=== PATIENT | female | born 1985 | race Caucasian/White ===

== ENCOUNTER 2019-04-27 15:47 | Emergency (ER) | payer BC, OTHER ==
[2019-04-27 16:05] VITALS: PULSE 75; TEMP 98.7; BMI 27.4
--- NOTE | 2019-04-27 16:37 | PDOC ---
History of Present Illness - General Chief Complaint: Vaginal Bleeding Stated Complaint: SENT BY PCP/ 5 WKS/ BLEEDING Time Seen by Provider: 04/27/19 16:31 History Source: Patient Exam Limitations: Clinical Condition - History of Present Illness Initial Comments: 04/27/19 16:35 Patient with no significant past medical history LMP 03/26presented with complaint of vaginal spotting soaking 1 pad a day and home test positive. Patient reported nausea but denies vomiting. Denies abdominal pain, constipation, diarrhea. Patient reported unable to secure from her CLINICAL LAB SPECIALIST so she came in to make sure she is okay. Denies any other symptoms Is this a multiple visit Asthma Patient?: No Timing/Duration: 24 hours Past History - Past Medical History Allergies/Adverse Reactions: Allergies Allergy/AdvReac Type Severity Reaction Status Date / Time Sulfa (Sulfonamide Allergy Verified 04/27/19 16:04 Antibiotics) Home Medications: Ambulatory Orders Nitrofurantoin Monohyd/M-Cryst [Macrobid -] 100 mg PO BID #14 capsule 04/27/19 Asthma: Yes COPD: No Other medical history: polyps on thyroid - Psycho Social/Smoking Cessation Hx Smoking History: Never smoked Hx Alcohol Use: Yes Drug/Substance Use Hx: No Review of Systems - Review of Systems Able to Perform ROS?: Yes Is the patient limited Dominican proficient: No Constitutional: No: Chills, Fever, Malaise HEENTM: No: Symptoms Reported, See HPI, Eye Pain, Blurred Vision, Tearing, Recent change in vision, Double Vision, Cataracts, Ear Pain, Ocular Prothesis, Ear Discharge, Nose Pain, Nose Congestion, Tinnitus, Nose Bleeding, Hearing Loss , Throat Pain, Throat Swelling, Mouth Pain, Dental Problems, Difficulty Swallowing, Mouth Swelling, Other Respiratory: No: Symptoms reported, See HPI, Cough, Orthopnea, Shortness of Breath, SOB with Exertion, SOB at Rest, Stridor, Wheezing, Productive cough, Hemoptysis, Other Cardiac (ROS): No: Symptoms Reported, See HPI, Chest Pain, Edema, Irregular Heart Rate, Lightheadedness, Palpitations, Syncope, Chest Tightness, Other ABD/GI: Yes: Symptoms Reported, See HPI, Nausea. No: Abdominal Distended, Abd. Pain w/ defecation, Constipated, Diarrhea, Difficulty Swallowing, Rectal Bleeding, Vomiting, Abdominal cramping : Yes: Symptoms Reported, See HPI, Other (vaginal spotting). No: Burning, Dysuria, Discharge, Frequency, Flank Pain, Hematuria, Urgency Musculoskeletal: No: Symptoms Reported Integumentary: No: Symptoms Reported Neurological: No: Symptoms reported All Other Systems: Reviewed and Negative *Physical Exam - Vital Signs Last Vital Signs Temp Pulse Resp BP Pulse Ox 98.7 F 75 16 129/76 97 04/27/19 16:01 04/27/19 16:01 04/27/19 16:01 04/27/19 16:01 04/27/19 16:01 - Physical Exam General Appearance: Yes: Nourished, Appropriately Dressed. No: Apparent Distress HEENT: positive: Normal ENT Inspection, Pharynx Normal, Thrush Respiratory/Chest: positive: Lungs Clear, Normal Breath Sounds. negative: Respiratory Distress, Accessory Muscle Use Cardiovascular: positive: Regular Rhythm, Regular Rate Female Pelvic Exam: positive: normal external exam, cervical os closed, normal adnexa, vaginal bleeding (small amount of dark blood in vaginal vault. no active bleeding). negative: CMT Gastrointestinal/Abdominal: positive: Normal Bowel Sounds, Flat, Soft. negative : Tender, Organomegaly Musculoskeletal: positive: Normal Inspection Extremity: positive: Normal Inspection Integumentary: positive: Normal Color Neurologic: positive: Fully Oriented, Alert, Normal Mood/Affect, Normal Response ED Treatment Course - LABORATORY CBC & Chemistry Diagram: 04/27/19 14:43 04/27/19 14:43 Medical Decision Making - Medical Decision Making 04/27/19 16:36 Patient with no significant past medical history LMP 03/26 presented with complaint of vaginal spotting soaking 1 pad a day and home test positive. Patient reported nausea but denies vomiting. Denies abdominal pain, constipation, diarrhea. Patient reported unable to secure from her CLINICAL LAB SPECIALIST so she came in to make sure she is okay. Denies any other symptoms 04/27/19 16:51 Exam significant for small amount of dark blood in vaginal vault with no acute vaginal bleeding. Cervical os closed. No cervical motion tenderness. Patient symptoms likely threatened versus menstrual. CBC, CMP and beta-hCG lab ordered. UA and urine culture lab ordered. Transvaginal ultrasound to be ordered based on test result 04/27/19 17:18 Patient signed out to [email or web address] for follow-up care Discharge - Discharge Information Problems reviewed: Yes Clinical Impression/Diagnosis: Vaginal bleeding Condition: Stable Disposition: HOME - Additional Discharge Information Prescriptions: Nitrofurantoin Monohyd/M-Cryst [Macrobid -] 100 mg PO BID #14 capsule - Follow up/Referral Referrals: Adam Rios MD [Primary Care Provider] - - Patient Discharge Instructions Additional Instructions: Rest, drink lots of fluids: Teas, water, soups Avoid contact with others until fevers and symptoms resolved Lots of handwashing and good hygiene Continue [id number] medications for symptomatic relief Tylenol or Motrin for fever and pain Continue all of antibiotics until completed Followup with private physician in one week for repeat urinalysis/reevaluation Return to emergency department for worsened symptoms, fevers, dehydration - Post Discharge Activity
[2019-04-27 17:09] LABS: EOS % 1.7 % (0-4.5); HEMATOCRIT 40.9 % (32.4-45.2); HEMOGLOBIN 13.7 GM/dL (10.7-15.3); LYMPH % 40.9 % (8-40); MCH 29.8 pg (25.7-33.7); MCHC 33.4 g/dl (32.0-36.0); MEAN CELL VOLUME 89.2 fl (80-96); MEAN PLT VOLUME 9.1 fl (7.5-11.1); MONO % 6.8 % (3.8-10.2); NEUT % 49.6 % (42.8-82.8); PLATELET COUNT 293 K/MM3 (134-434); RBC 4.59 M/mm3 (3.60-5.2); RDW 12.3 % (11.6-15.6); WHITE BLOOD COUNT 8.7 K/mm3 (4.0-10.0)
[2019-04-27 17:18] LABS: EPI CELLS 0.6 /HPF (0-5/HPF); HYALINE CASTS 0 /lpf (0-8); URINE APPEARANCE CLEAR; URINE BACTERIA 6060.6 /hpf (NEGATIVE); URINE BILIRUBIN NEGATIVE (NEGATIVE); URINE COLOR YELLOW; URINE GLUCOSE (UA) NEGATIVE (NEGATIVE); URINE KETONE NEGATIVE (NEGATIVE); URINE LEUK ESTERASE NEGATIVE (NEGATIVE); URINE NITRITE POSITIVE (NEGATIVE); URINE PROTEIN NEGATIVE (NEGATIVE); URINE RBC 1 /hpf (0-4); URINE UROBILINOGEN 0.2 mg/dL (0.2-1.0); URINE WBC 1 /hpf (0-5)
[2019-04-27 17:43] LABS: ALBUMIN 4.2 g/dl (3.4-5.0); BILIRUBIN,TOTAL 0.2 mg/dL (0.2-1); BLOOD UREA NITROGEN 12.2 mg/dL (7-18); CALCIUM 9.3 mg/dL (8.5-10.1); CREATININE 0.8 mg/dL (0.55-1.3); TOT PROT 7.6 g/dl (6.4-8.2)
--- NOTE | 2019-04-27 17:58 | PDOC ---
*Physical Exam - Vital Signs Last Vital Signs Temp Pulse Resp BP Pulse Ox 98.7 F 75 16 129/76 97 04/27/19 16:01 04/27/19 16:01 04/27/19 16:01 04/27/19 16:01 04/27/19 16:01 - Physical Exam General Appearance: Yes: Appropriately Dressed. No: Apparent Distress Respiratory/Chest: positive: Lungs Clear, Normal Breath Sounds. negative: Respiratory Distress, Accessory Muscle Use Cardiovascular: positive: Regular Rhythm, Regular Rate. negative: Murmur Gastrointestinal/Abdominal: positive: Normal Bowel Sounds, Soft. negative: Tender ED Treatment Course - LABORATORY CBC & Chemistry Diagram: 04/27/19 14:43 04/27/19 14:43 - ADDITIONAL ORDERS Additional order review: Laboratory Results 04/27/19 04/27/19 14:43 14:43 Sodium 139 Potassium 4.0 Chloride 106 Carbon Dioxide 26 Anion Gap 7 L BUN 12.2 Creatinine 0.8 Est GFR (CKD-EPI)AfAm 113.86 Est GFR (CKD-EPI)NonAf 98.24 Random Glucose 77 Calcium 9.3 Total Bilirubin 0.2 AST 14 L ALT 24 Alkaline Phosphatase 77 Total Protein 7.6 Albumin 4.2 Beta HCG, Quant 4.4 Urine Color Yellow Urine Appearance Clear Urine pH 8.0 Ur Specific [place] 1.010 Urine Protein Negative Urine Glucose (UA) Negative Urine Ketones Negative Urine Blood 2+ H Urine Nitrite Positive H Urine Bilirubin Negative Urine Urobilinogen 0.2 Ur Leukocyte Esterase Negative Urine WBC (Auto) 1 Urine RBC (Auto) 1 Urine Casts (Auto) 0 U Epithel Cells (Auto) 0.6 Urine Bacteria (Auto) 6060.6 04/27/19 14:43 RBC 4.59 MCV 89.2 MCHC 33.4 RDW 12.3 MPV 9.1 Neutrophils % 49.6 Lymphocytes % 40.9 H Monocytes % 6.8 Eosinophils % 1.7 Basophils % 1.0 ED Progress Note - Progress Note Progress Note: 04/27/19 17:54 Received patient from [facility]. 33-year-old woman presents emergency department for evaluation of positive home test and vaginal spotting today. Patient reports her last menstrual period was 03/27. Patient was unable to obtain an evaluation by her [employer]BI[employer] TECHNICIAN and came to the emergency department for evaluation Laboratory testing is pending Disposition pending laboratory studies Medical Decision Making - Medical Decision Making 04/27/19 17:55 Laboratory Tests 04/27/19 04/27/19 04/27/19 14:43 14:43 14:43 WBC 8.7 Hgb 13.7 Hct 40.9 Plt Count 293 Sodium 139 Potassium 4.0 Chloride 106 Carbon Dioxide 26 BUN 12.2 Creatinine 0.8 Est GFR (CKD-EPI)AfAm 113.86 Est GFR (CKD-EPI)NonAf 98.24 Random Glucose 77 Calcium 9.3 Total Bilirubin 0.2 AST 14 L ALT 24 Alkaline Phosphatase 77 Total Protein 7.6 Albumin 4.2 Beta HCG, Quant 4.4 Urine Color Yellow Urine Appearance Clear Urine pH 8.0 Ur Specific [place] 1.010 Urine Protein Negative Urine Glucose (UA) Negative Urine Ketones Negative Urine Blood 2+ H Urine Nitrite Positive H Urine Bilirubin Negative Urine Urobilinogen 0.2 Ur Leukocyte Esterase Negative Urine WBC (Auto) 1 Urine RBC (Auto) 1 Urine Casts (Auto) 0 U Epithel Cells (Auto) 0.6 Urine Bacteria (Auto) 6060.6 As beta-hCG is 4.4 patient is likely not and this is likely a normal menstrual period. Urinalysis notable for positive nitrates and 6000 bacteria. Patient is allergic to sulfa I will discharge the patient with prescription for Macrobid 100 mg twice daily for the next 7 days. I discussed the physical exam findings, ancillary test results and final diagnoses with the patient. I answered all of the patient's questions. The patient was satisfied with the care received and felt comfortable with the discharge plan and treatment plan. The patient will call their primary care physician within 24 hours to arrange follow-up and will return to the Emergency Department with any new, persistent or worsening symptoms. 04/27/19 17:58 Discharge - Discharge Information Problems reviewed: Yes Clinical Impression/Diagnosis: Vaginal bleeding, Cystitis Condition: Stable Disposition: HOME - Admission No - Additional Discharge Information Prescriptions: Nitrofurantoin Monohyd/M-Cryst [Macrobid -] 100 mg PO BID #14 capsule - Follow up/Referral Referrals: Adam Rios MD [Primary Care Provider] - - Patient Discharge Instructions Additional Instructions: Rest, drink lots of fluids: Teas, water, soups Avoid contact with others until fevers and symptoms resolved Lots of handwashing and good hygiene Continue [id number] medications for symptomatic relief Tylenol or Motrin for fever and pain Continue all of antibiotics until completed Followup with private physician in one week for repeat urinalysis/reevaluation Return to emergency department for worsened symptoms, fevers, dehydration - Post Discharge Activity
[2019-04-27 18:01] VITALS: BP 116/63
== END 2019-04-27 18:04 | disposition home or self-care (01) ==
LOC: JER 15:47
DX: N30.90 Cystitis, unspecified without hematuria (principal); N93.9 Abnormal uterine and vaginal bleeding, unspecified; Z88.2 Allergy status to sulfonamides
CPT/HCPCS: 36415; 80053; 81003; 84702; 85025; 86850; 86900; 86901; 87086; 87186; 99282-25

== ENCOUNTER 2020-04-03 10:12 | Emergency (ER) | payer BC, OTHER | END 2020-04-03 10:29 | disposition home or self-care (01) | LOC: JVIRT 10:12 | DX: Z11.59 Encounter for screening for other viral diseases (principal) | CPT/HCPCS: C9803; Q3014-GT; U0003 ==

== ENCOUNTER 2023-04-20 07:05 | Inpatient (IN) | payer BC, OTHER ==
[2023-04-20 08:16] VITALS: BMI 35.5
[2023-04-20] MEDS ORDERED: AMPICILLIN - 2 GM in SODIUM CHLORIDE 100 ML IVPB ONE (08:25)
[2023-04-20] MEDS ORDERED: OXYTOCIN 30 UNITS in 0.9% NS 30 UNIT/500 ML INFUS.BAG IVPB SCH (08:30)
[2023-04-20] MEDS: ELECTROLYTE-148 SOLN 1,000 ML IV SCH ×3 (09:05→13:57)
[2023-04-20 09:22] LABS: BASO % 0.9 % (0-2.0); EOS % 1.9 % (0-4.5); HEMATOCRIT 34.7 % (32.4-45.2); HEMOGLOBIN 11.6 GM/dL (10.7-15.3); LYMPH % 20.8 % (8-40); MCH 29.9 pg (25.7-33.7); MCHC 33.5 g/dl (32.0-36.0); MEAN CELL VOLUME 89.1 fl (80-96); MEAN PLT VOLUME 9.7 fl (7.5-11.1); MONO % 6.1 % (3.8-10.2); NEUT % 70.3 % (42.8-82.8); PLATELET COUNT 171 10^3/uL (134-434); RBC 3.89 M/mm3 (3.60-5.2); RDW 14.3 % (11.6-15.6); WHITE BLOOD COUNT 10.2 K/mm3 (4.0-10.0)
[2023-04-20 09:26] LABS: INR 0.96 (0.83-1.09); PROTHROMBIN TIME (PATIENT) 11.1 SEC (9.7-13.0)
[2023-04-20 09:29] LABS: ACTIVATED PTT 25.9 SECONDS (25.2-36.5)
[2023-04-20] MEDS ORDERED: OXYTOCIN 30 UNITS in 0.9% NS 30 UNIT/500 ML INFUS.BAG IVPB ONE (09:29)
[2023-04-20 09:38] LABS: POTASSIUM 4.1 mmol/L (3.5-5.1)
[2023-04-20 09:40] LABS: BLOOD UREA NITROGEN 11.8 mg/dL (7-18)
[2023-04-20 09:43] LABS: CREATININE 0.6 mg/dL (0.55-1.3)
[2023-04-20] MEDS ORDERED: FENTANYL/BUPIVACAINE/NS/PF - PCEA - 50 ML DISP.SYRIN EP ONE (11:45)
[2023-04-20] MEDS ORDERED: LIDOCAINE HCL/EPINEPHRINE/PF 10 ML VIAL ONE (11:53)
[2023-04-20] MEDS ORDERED: FENTANYL CITRATE/PF 50 MCG/ML VIAL ONE (11:53)
[2023-04-20] MEDS ORDERED: BUPIVACAINE HCL/PF 0.25% (2.5MG/ML) 10 ML VIAL ONE (11:53)
[2023-04-20] MEDS ORDERED: NALOXONE HCL 0.4 MG/ML VIAL IVPUSH PRN (12:16)
[2023-04-20] MEDS ORDERED: AMPICILLIN SODIUM 2 GM VIAL ONE (12:25)
[2023-04-20] MEDS ORDERED: SODIUM CHLORIDE 100 ML IVPB ONE (12:25)
[2023-04-20] MEDS ORDERED: FENTANYL/BUPIVACAINE/NS/PF - PCEA - 50 ML DISP.SYRIN EP SCH (12:30)
[2023-04-20] MEDS ORDERED: OXYTOCIN 20 UNITS in 0.9% NS 20 UNIT/1,000 ML INFUS.BAG IV ONE (13:41)
[2023-04-20] MEDS ORDERED: ACETAMINOPHEN 325 MG TABLET (FP) PO PRN (14:40)
[2023-04-20] MEDS ORDERED: BENZOCAINE 20% 57 GM BOTTLE TP PRN (14:40)
[2023-04-20] MEDS ORDERED: oxyCODONE HCL 5 MG TABLET PO PRN (14:40)
[2023-04-20] MEDS ORDERED: WITCH HAZEL 50% (TUCKS) 40 PAD/JAR PAD TP PRN (14:40)
[2023-04-20] MEDS ORDERED: BENZOCAINE 28 GM HEMORRHOIDAL OINTMENT TP PRN (14:40)
[2023-04-20] MEDS ORDERED: METHYLERGONOVINE MALEATE 0.2 MG/1 ML AMP IM PRN (14:40)
[2023-04-20] MEDS ORDERED: BISACODYL 10 MG SUPP.RECT RC PRN (14:40)
[2023-04-20] MEDS ORDERED: OXYTOCIN 20 UNITS in 0.9% NS 20 UNIT/1,000 ML INFUS.BAG IV SCH (14:45)
[2023-04-20 15:15] LABS: CORD HCO3 23.2 mmHg (20-29); CORD PCO2 50.8 mmHg (30-78); CORD pH 7.277 (7.14-7.44)
[2023-04-20 15:19] LABS: CORD HCO3 24.1 mmHg (20-29); CORD PCO2 63.9 mmHg (30-78); CORD pH 7.195 (7.14-7.44)
[2023-04-20 16:58] VITALS: RESP 18
[2023-04-20] MEDS: IBUPROFEN 600 MG TABLET (FP) PO PRN (21:26)
[2023-04-21 07:47] LABS: BASO % 0.6 % (0-2.0); EOS % 2.4 % (0-4.5); HEMATOCRIT 33.6 % (32.4-45.2); HEMOGLOBIN 11.3 GM/dL (10.7-15.3); MCH 30.1 pg (25.7-33.7); MCHC 33.6 g/dl (32.0-36.0); MEAN CELL VOLUME 89.6 fl (80-96); MEAN PLT VOLUME 9.6 fl (7.5-11.1); MONO % 6.7 % (3.8-10.2); NEUT % 69.3 % (42.8-82.8); PLATELET COUNT 147 10^3/uL (134-434); RBC 3.75 M/mm3 (3.60-5.2); RDW 13.9 % (11.6-15.6); WHITE BLOOD COUNT 10.2 K/mm3 (4.0-10.0)
[2023-04-21] MEDS: IBUPROFEN 600 MG TABLET (FP) PO PRN (21:16)
[2023-04-21] MEDS ORDERED: SENNOSIDES/DOCUSATE COMBO (SENNA PLUS) TABLET (UD) PO PRN (22:00)
[2023-04-22] MEDS: IBUPROFEN 600 MG TABLET (FP) PO PRN (05:38)
[2023-04-22 11:44] VITALS: BP 113/76; PULSE 71; TEMP 98.1
== END 2023-04-22 14:45 | disposition home or self-care (01) | DRG 807 ==
LOC: JLDR 07:05 → J3W 16:00
PROVIDERS: ADMIT Obstetrics & Gynecology; ATTEND Obstetrics & Gynecology
PROC: 10E0XZZ Delivery of Products of Conception, External Approach (ICD-10-PCS; principal; 2023-04-20)
PROC: 3E033VJ Introduction of Other Hormone into Peripheral Vein, Percutaneous Approach (ICD-10-PCS; 2023-04-20)
DX: O24.02 Pre-existing type 1 diabetes mellitus, in childbirth (principal); Z37.0 Single live birth; O99.824 Streptococcus B carrier state complicating childbirth; O69.81X0 Labor and delivery complicated by cord around neck, without compression, not applicable or unspecified; Z3A.39 39 weeks gestation of pregnancy; Z79.4 Long term (current) use of insulin
CPT/HCPCS: 36415; 36600; 80048; 82803; 82962; 85025; 85610; 85730; 86780; 86850; 86900; 86901